=== PATIENT | male | born 1950 | race Caucasian/White ===

== ENCOUNTER 2019-03-26 15:56 | Inpatient (IN) | payer BC ==
[2019-03-26] VITALS (10 sets, daily range): BP systolic 115–145; BP diastolic 63–92
[~2019-03-26] VITALS: Ht 172.7 cm; Wt 71.2 kg
[2019-03-26] MEDS ORDERED: HEPARIN 25,000 UNITS PREMIX 500 ML IV SCH (19:15)
[2019-03-26] MEDS ORDERED: NITROGLYCERIN 0.4MG TABLET SL SL PRN ×2 (19:45→20:00)
[2019-03-26] MEDS ORDERED: ACETAMINOPHEN 325MG TABLET PO PRN ×2 (19:45→20:00)
[2019-03-26] MEDS ORDERED: NA PHOS,M-B/NA PHOS,DI-BA ENEMA 118ML PR PRN (20:00)
[2019-03-26] MEDS ORDERED: TRAMADOL 50MG TABLET PO PRN (20:00)
[2019-03-26] MEDS ORDERED: ONDANSETRON HCL 4MG/2ML INJ IV PRN (20:00)
[2019-03-26] MEDS ORDERED: ZOLPIDEM TARTRATE 5MG TABLET PO PRN (20:00)
[2019-03-26] MEDS ORDERED: IPRATROPIUM/ALBUTEROL 0.5-3(2.5)MG/3ML NEB NEB PRN (20:00)
[2019-03-26] MEDS ORDERED: MAGNESIUM/ALUMINUM HYDROXIDE/SIMETHICONE 30ML UDC PO PRN (20:00)
[2019-03-26] MEDS ORDERED: LORAZEPAM 0.5MG TABLET PO PRN (20:00)
[2019-03-26] MEDS ORDERED: GUAIFENESIN 200MG/10ML SUGAR FREE UDC PO PRN (20:00)
[2019-03-26] MEDS ORDERED: CLONIDINE 0.1MG TABLET PO PRN (20:00)
[2019-03-26] MEDS ORDERED: HEPARIN 60 UNITS/KG BOLUS IV SCH (20:00)
[2019-03-26 20:14] LABS: BASOPHILS % 2.1 % (0.0-2.0); EOSINOPHILS % 8.4 % (0.0-5.0); HEMATOCRIT. 36.5 % (42.0-52.0); HEMOGLOBIN. 11.8 g/dL (14.0-18.0); LYMPHOCYTES % 27.7 % (20.0-50.0); MEAN CORPUSCULAR HEMOGLOBIN 21.7 pg (28.0-32.0); MEAN CORPUSCULAR VOLUME 67.4 fL (80.0-94.0); MEAN PLATELET VOLUME 8.8 fl (7.4-10.4); MONOCYTES % 8.8 % (2.0-8.0); PLATELET 181 x1000/uL (130-400); RED BLOOD CELL COUNT 5.41 mill/uL (4.7-6.1); RED CELL DISTRIBUTION WIDTH 16.3 % (11.6-14.6)
[2019-03-26 20:23] LABS: PROTHROMBIN TIME 10.5 sec (9.6-11.0)
[2019-03-26] MEDS ORDERED: MORPHINE SULFATE 4 MG/ML CPJ (NOT FOR IM USE) IV PRN (20:30)
[2019-03-26] MEDS ORDERED: HEPARIN BOLUS PRN aPTT 30-44 IV (20:30)
[2019-03-26] MEDS ORDERED: HEPARIN BOLUS PRN aPTT <30 IV (20:30)
[2019-03-26] MEDS: HEPARIN 25,000 UNITS PREMIX 500 ML IV SCH (20:38)
[2019-03-26 20:43] LABS: PLATELET ESTIMATE NORMAL
[2019-03-26 20:49] LABS: CHLORIDE 110 mEq/L (98-107)
[2019-03-26 20:56] LABS: AMYLASE 69 IU/L (25-115)
[2019-03-26] MEDS: ALLOPURINOL 300 MG TABLET PO SCH ×2 (21:00→22:27)
[2019-03-26] MEDS ORDERED: DOCUSATE SODIUM 100MG CAPSULE PO SCH (21:00)
[2019-03-26] MEDS ORDERED: DIPHENHYDRAMINE 25MG CAPSULE PO PRN (21:00)
[2019-03-26] MEDS ORDERED: BISACODYL 10MG SUPP PR PRN (21:00)
[2019-03-26] MEDS ORDERED: CHLORHEXIDINE GLUCONATE 4% EXTERNAL USE TOP SCH (21:00)
[2019-03-26] MEDS ORDERED: ASCORBIC ACID 500 MG TABLET PO SCH (21:00)
[2019-03-26] MEDS: FAMOTIDINE 20MG TABLET PO SCH (21:37)
[2019-03-26] MEDS: ATORVASTATIN CALCIUM 40MG TABLET PO SCH (21:37)
[2019-03-26 22:57] LABS: CLARITY URINE CLEAR (CLEAR); COLOR URINE YELLOW (YELLOW); KETONES URINE NEGATIVE (NEGATIVE); LEUKOCYTE ESTERASE URINE NEGATIVE (NEGATIVE); NITRITE URINE NEGATIVE (NEGATIVE); OCCULT BLOOD URINE NEGATIVE (NEGATIVE); PH URINE 5.5 (4.5-8.0); PROTEIN URINE NEGATIVE (NEGATIVE); SPECIFIC GRAVITY URINE 1.013 (1.005-1.030); UROBILINOGEN URINE 0.2 E.U./dL (0.2-1.0)
[2019-03-27] VITALS (25 sets, daily range): BP systolic 96–149; BP diastolic 54–90
[2019-03-27 05:22] LABS: CHLORIDE 110 mEq/L (98-107)
[2019-03-27 05:25] LABS: BASOPHILS % 1.7 % (0.0-2.0); EOSINOPHILS % 8.1 % (0.0-5.0); HEMATOCRIT. 38.3 % (42.0-52.0); HEMOGLOBIN. 12.3 g/dL (14.0-18.0); LYMPHOCYTES % 25.6 % (20.0-50.0); MEAN CORPUSCULAR HEMOGLOBIN 21.8 pg (28.0-32.0); MEAN CORPUSCULAR VOLUME 68.1 fL (80.0-94.0); MEAN PLATELET VOLUME 9.2 fl (7.4-10.4); MONOCYTES % 9.7 % (2.0-8.0); NEUTROPHILS % 54.9 % (40.0-76.0); PLATELET 181 x1000/uL (130-400); RED BLOOD CELL COUNT 5.63 mill/uL (4.7-6.1); RED CELL DISTRIBUTION WIDTH 16.2 % (11.6-14.6)
[2019-03-27 05:30] LABS: HDL CHOLESTEROL 65 mg/dL (40-59); LDL CHOLESTEROL 48 mg/dL (5-100)
[2019-03-27] MEDS: ALLOPURINOL 300 MG TABLET PO SCH (05:30)
[2019-03-27] MEDS: FAMOTIDINE 20MG TABLET PO SCH ×2 (08:04→20:40)
[2019-03-27] MEDS: ASPIRIN 81MG TABLET PO SCH (08:04)
[2019-03-27] MEDS ORDERED: CHLORHEXIDINE GLUCONATE 4% EXTERNAL USE TOP SCH (09:00)
[2019-03-27] MEDS: ATORVASTATIN CALCIUM 40MG TABLET PO SCH (20:40)
[2019-03-27] MEDS: HEPARIN 25,000 UNITS PREMIX 500 ML IV SCH (23:03)
[2019-03-28] VITALS (14 sets, daily range): BP systolic 96–132; BP diastolic 58–82
[2019-03-28 05:00] LABS: BASOPHILS % 1.5 % (0.0-2.0); EOSINOPHILS % 6.5 % (0.0-5.0); HEMATOCRIT. 38.2 % (42.0-52.0); HEMOGLOBIN. 12.4 g/dL (14.0-18.0); LYMPHOCYTES % 23.5 % (20.0-50.0); MEAN CORPUSCULAR HEMOGLOBIN 21.9 pg (28.0-32.0); MEAN CORPUSCULAR VOLUME 67.7 fL (80.0-94.0); MEAN PLATELET VOLUME 9.5 fl (7.4-10.4); MONOCYTES % 8.6 % (2.0-8.0); NEUTROPHILS % 59.9 % (40.0-76.0); PLATELET 180 x1000/uL (130-400); RED BLOOD CELL COUNT 5.64 mill/uL (4.7-6.1); RED CELL DISTRIBUTION WIDTH 16.2 % (11.6-14.6)
[2019-03-28 05:08] LABS: CHLORIDE 106 mEq/L (98-107)
[2019-03-28] MEDS: FAMOTIDINE 20MG TABLET PO SCH ×2 (08:00→20:28)
[2019-03-28] MEDS: ASPIRIN 81MG TABLET PO SCH (08:00)
[2019-03-28] MEDS: ATORVASTATIN CALCIUM 40MG TABLET PO SCH (20:28)
[2019-03-29] VITALS (12 sets, daily range): BP systolic 109–133; BP diastolic 51–83
[2019-03-29] MEDS: HEPARIN 25,000 UNITS PREMIX 500 ML IV SCH (06:44)
[2019-03-29] MEDS: FAMOTIDINE 20MG TABLET PO SCH ×2 (08:16→21:43)
[2019-03-29] MEDS: ASPIRIN 81MG TABLET PO SCH (08:16)
[2019-03-29] MEDS: DOCUSATE SODIUM 250MG CAPSULE PO SCH (12:32)
[2019-03-29] MEDS ORDERED: EPOETIN ALFA 10000UNITS/ML VIAL SUBCUT SCH (13:00)
[2019-03-29] MEDS ORDERED: MAGNESIUM 4 G PREMIX 100 ML IV SCH (13:00)
[2019-03-29] MEDS: ATORVASTATIN CALCIUM 40MG TABLET PO SCH (21:43)
[2019-03-30] VITALS (12 sets, daily range): BP systolic 106–149; BP diastolic 69–94
[2019-03-30] MEDS: HEPARIN 25,000 UNITS PREMIX 500 ML IV SCH (06:17)
[2019-03-30 07:15] LABS: BASOPHILS % 1.8 % (0.0-2.0); EOSINOPHILS % 8.7 % (0.0-5.0); HEMATOCRIT. 42.6 % (42.0-52.0); HEMOGLOBIN. 13.8 g/dL (14.0-18.0); MEAN CORPUSCULAR HEMOGLOBIN 21.9 pg (28.0-32.0); MEAN CORPUSCULAR VOLUME 67.5 fL (80.0-94.0); MEAN PLATELET VOLUME 10.3 fl (7.4-10.4); MONOCYTES % 8.2 % (2.0-8.0); NEUTROPHILS % 50.3 % (40.0-76.0); PLATELET 199 x1000/uL (130-400); RED BLOOD CELL COUNT 6.31 mill/uL (4.7-6.1); RED CELL DISTRIBUTION WIDTH 16.2 % (11.6-14.6)
[2019-03-30 07:24] LABS: CHLORIDE 103 mEq/L (98-107)
[2019-03-30] MEDS: FAMOTIDINE 20MG TABLET PO SCH ×2 (08:13→21:57)
[2019-03-30] MEDS: DOCUSATE SODIUM 250MG CAPSULE PO SCH (08:13)
[2019-03-30] MEDS: ASPIRIN 81MG TABLET PO SCH (08:13)
[2019-03-30] MEDS ORDERED: CHLORHEXIDINE GLUCONATE 4% EXTERNAL USE TOP NR (21:00)
[2019-03-30] MEDS: ATORVASTATIN CALCIUM 40MG TABLET PO SCH (21:57)
[2019-03-31] VITALS (33 sets, daily range): BP systolic 84–136; BP diastolic 31–81
[2019-03-31 06:47] LABS: BASOPHILS % 1.8 % (0.0-2.0); HEMATOCRIT. 40.3 % (42.0-52.0); LYMPHOCYTES % 24.6 % (20.0-50.0); MEAN CORPUSCULAR VOLUME 68.2 fL (80.0-94.0); MEAN PLATELET VOLUME 9.8 fl (7.4-10.4); MONOCYTES % 7.8 % (2.0-8.0); NEUTROPHILS % 57.8 % (40.0-76.0); PLATELET 183 x1000/uL (130-400); RED BLOOD CELL COUNT 5.91 mill/uL (4.7-6.1); RED CELL DISTRIBUTION WIDTH 16.4 % (11.6-14.6)
[2019-03-31 07:29] LABS: CHLORIDE 106 mEq/L (98-107)
[2019-03-31] MEDS: CHLORHEXIDINE GLUCONATE 4% EXTERNAL USE TOP NR ×2 (07:40→08:37)
[2019-03-31] MEDS: FAMOTIDINE 20MG TABLET PO SCH ×2 (08:37→21:03)
[2019-03-31] MEDS: DOCUSATE SODIUM 250MG CAPSULE PO SCH (08:37)
[2019-03-31] MEDS: ASPIRIN 81MG TABLET PO SCH (08:37)
[2019-03-31] MEDS ORDERED: BACITRACIN 15GM TUBE TOP ONE (08:52)
[2019-03-31] MEDS ORDERED: NORMAL SALINE 0.9% 10 ML SYR ONE (08:53)
[2019-03-31] MEDS ORDERED: SKIN ADHESIVE 0.7 GM EA TOP ONE (08:53)
[2019-03-31] MEDS ORDERED: THROMBIN (BOVINE) 5000 UNITS/VIAL TOP ONE (08:53)
[2019-03-31] MEDS ORDERED: SODIUM CHLORIDE 0.9% ONE (08:54)
[2019-03-31] MEDS ORDERED: BACITRACIN 50,000 UNITS/VIAL ONE (08:54)
[2019-03-31] MEDS ORDERED: SODIUM CHLORIDE 0.9% 200 ML ONE (08:54)
[2019-03-31] MEDS ORDERED: SODIUM CHLORIDE 0.9% IRRIG SOL 8,000 ML IR ONE (08:54)
[2019-03-31] MEDS ORDERED: SODIUM CHLORIDE 0.9% 500 ML IV ONE (08:54)
[2019-03-31] MEDS ORDERED: HEPARIN 1000 UNITS/ML 10ML ONE ×4 (09:04→13:10)
[2019-03-31] MEDS ORDERED: SEVOFLURANE 250 ML LIQUID INH ONE (09:05)
[2019-03-31] MEDS ORDERED: NITROGLYCERIN 50MG PREMIX 250 ML IV ONE (09:05)
[2019-03-31] MEDS ORDERED: MIDAZOLAM HCL 2 MG/2 ML VIAL ONE (09:24)
[2019-03-31] MEDS ORDERED: FENTANYL CITRATE/PF 50MCG/ML 5ML VIAL ONE (09:26)
[2019-03-31] MEDS ORDERED: ROCURONIUM BROMIDE 10MG/ML VIAL 5ML IV ONE (09:27)
[2019-03-31] MEDS ORDERED: LIDOCAINE HCL 2% 5ML SYRINGE IV ONE (09:27)
[2019-03-31] MEDS ORDERED: LIDOCAINE HCL/PF 2% 20MG/ML 5 ML/VIAL ONE (09:27)
[2019-03-31] MEDS ORDERED: ESMOLOL HCL 10MG/ML 10ML VIAL IV ONE (09:27)
[2019-03-31] MEDS ORDERED: STERILE WATER FOR INJECTION 10ML VIAL ONE (09:27)
[2019-03-31] MEDS ORDERED: ETOMIDATE 2MG/ML 10ML VIAL IV ONE (09:30)
[2019-03-31] MEDS ORDERED: PHENYLEPHRINE 40 MG in SODIUM CHLORIDE 0.9% 246 ML IV PRN (09:30)
[2019-03-31] MEDS ORDERED: PROPOFOL 200MG/20ML VIAL IV ONE (09:35)
[2019-03-31] MEDS ORDERED: ACETAMINOPHEN 325MG TABLET PO NR (09:45)
[2019-03-31] MEDS ORDERED: ACETAMINOPHEN 500MG TABLET PO NR (09:48)
[2019-03-31] MEDS ORDERED: NICARDIPINE 50 MG in NS 250 ML IV ONE (10:00)
[2019-03-31] MEDS ORDERED: PAPAVERINE HCL 180MG in SODIUM CHLORIDE 0.9% 24ML IV ONE (10:00)
[2019-03-31] MEDS ORDERED: AMINOCAPROIC ACID 10,000 MG in SODIUM CHLORIDE 0.9% 460 ML IV ONE (10:00)
[2019-03-31] MEDS ORDERED: EPINEPHRINE 4 MG in DEXT 5% WATER 246 ML IV ONE (10:00)
[2019-03-31] MEDS ORDERED: NOREPINEPHRINE 4 MG in DEXT 5% WATER 246 ML IV ONE (10:00)
[2019-03-31] MEDS ORDERED: DOBUTAMINE 250MG PREMIX 250 ML IV ONE (10:00)
[2019-03-31] MEDS ORDERED: PHENYLEPHRINE 10 MG in DEXT 5% WATER 249 ML IV ONE (10:00)
[2019-03-31] MEDS ORDERED: DEL NIDO ELECTROLYTE-S(PH 7.4) 1,000 ML IV ONE ×2 (10:00)
[2019-03-31] MEDS ORDERED: DILTIAZEM HCL 5MG/ML 5ML VIAL IV ONE (10:00)
[2019-03-31] MEDS ORDERED: CEFAZOLIN 2,000 MG in DEXT 5% WATER 100 ML IV NR (10:00)
[2019-03-31] MEDS ORDERED: INSULIN REGULAR (DRIP) 100 UNITS in SODIUM CHLORIDE 0.9% 99 ML IV ONE (10:00)
[2019-03-31] MEDS ORDERED: VANCOMYCIN 1 G PREMIX 200 ML IV NR (10:30)
[2019-03-31] MEDS ORDERED: VANCOMYCIN HCL 500 MG/VIAL ONE (11:05)
[2019-03-31] MEDS ORDERED: MAGNESIUM SULFATE 5GM/10ML VIAL IV ONE ×2 (11:11→11:41)
[2019-03-31] MEDS ORDERED: AMINOCAPROIC ACID 250 MG/ML 20ML VIAL ONE (11:12)
[2019-03-31] MEDS ORDERED: PHENYLEPHRINE HCL 10 MG/ML 1ML (IV VIAL) IV ONE (11:12)
[2019-03-31] MEDS ORDERED: CALCIUM CHLORIDE 1GM/10ML SYR IV ONE ×3 (11:12→14:35)
[2019-03-31] MEDS ORDERED: MANNITOL 20% 0 ML IV ONE (11:12)
[2019-03-31] MEDS ORDERED: ALBUMIN HUMAN 25GM/100ML (25%) IV ONE ×2 (11:12→14:23)
[2019-03-31] MEDS ORDERED: SODIUM BICARBONATE 8.4% 1 MEQ/ML 50ML SYR IV ONE ×2 (11:13→14:35)
[2019-03-31] MEDS ORDERED: HEPARIN 10,000 UNITS/ML VIAL ONE ×2 (11:13→13:09)
[2019-03-31] MEDS ORDERED: DOPAMINE 400MG/250ML PREMIX 250 ML IV ONE (11:44)
[2019-03-31] MEDS ORDERED: ONDANSETRON HCL 4MG/2ML INJ ONE (13:49)
[2019-03-31] MEDS ORDERED: METOCLOPRAMIDE HCL 10MG/2ML VIAL ONE (13:49)
[2019-03-31] MEDS ORDERED: NEOSTIGMINE METHYLSULFATE 1MG/ML 10 ML VIAL ONE (13:51)
[2019-03-31] MEDS ORDERED: PROTAMINE SULFATE 10MG/ML VIAL 25ML IV ONE (14:15)
[2019-03-31] MEDS ORDERED: ALBUMIN HUMAN 12.5G/250ML (5%) IV ONE ×2 (14:23→15:00)
[2019-03-31] MEDS ORDERED: HYDROMORPHONE HCL/PF 2MG/ML (OR) ONE (14:27)
[2019-03-31] MEDS ORDERED: SODIUM CHLORIDE 0.9% 500 ML IV PRN (15:05)
[2019-03-31] MEDS ORDERED: LABETALOL HCL 5MG/ML VIAL 20ML IV ONE (15:15)
[2019-03-31] MEDS ORDERED: MAGNESIUM SULFATE 3 GM in DEXT 5% WATER 100 ML IV PRN (15:15)
[2019-03-31] MEDS ORDERED: OXYCODONE HCL/ACETAMINOPHEN 5/325MG TABLET PO PRN (15:15)
[2019-03-31] MEDS ORDERED: ALBUMIN HUMAN 25GM/100ML (25%) IV PRN (15:15)
[2019-03-31] MEDS ORDERED: MAGNESIUM 1 G PREMIX 100 ML IV PRN (15:15)
[2019-03-31 15:54] LABS: HEMATOCRIT. 32.6 % (42.0-52.0); HEMOGLOBIN. 10.5 g/dL (14.0-18.0); LYMPHOCYTES % 8.8 % (20.0-50.0); MEAN CORPUSCULAR HEMOGLOBIN 21.5 pg (28.0-32.0); MEAN CORPUSCULAR VOLUME 67.1 fL (80.0-94.0); MEAN PLATELET VOLUME 9.4 fl (7.4-10.4); MONOCYTES % 3.8 % (2.0-8.0); NEUTROPHILS % 83.4 % (40.0-76.0); PLATELET 154 x1000/uL (130-400); RED BLOOD CELL COUNT 4.86 mill/uL (4.7-6.1); RED CELL DISTRIBUTION WIDTH 16.1 % (11.6-14.6)
[2019-03-31] MEDS ORDERED: DEXTROSE 50% WATER 50ML SYRINGE IV PRN ×2 (16:00)
[2019-03-31] MEDS ORDERED: KCL 10MEQ/50ML PREMIX 100 ML IV PRN (16:00)
[2019-03-31] MEDS: BLOOD SUGAR DIAGNOSTIC STRIP TEST SCH ×8 (16:00→23:00)
[2019-03-31] MEDS ORDERED: KCL 10MEQ/50ML PREMIX 150 ML IV PRN (16:00)
[2019-03-31] MEDS ORDERED: KCL 10MEQ/50ML PREMIX 200 ML IV PRN (16:00)
[2019-03-31] MEDS: CEFAZOLIN 1000MG PREMIX 50 ML IV SCH (16:00)
[2019-03-31 16:02] LABS: PARTIAL THROMBOPLASTIN TIME 23.6 sec (23.4-31.0); PROTHROMBIN TIME 10.7 sec (9.6-11.0)
[2019-03-31 16:03] LABS: CHLORIDE 106 mEq/L (98-107)
[2019-03-31 16:13] LABS: PLATELET ESTIMATE NORMAL
[2019-03-31 16:25] LABS: BG BASE EXCESS 1.5 mmol/L (-2.0-2.0); BG CARBOXYHEMOGLOBIN 0.1 % (0.5-1.5); BG DEOXYHEMOGLOBIN 1.9 % (0.0-5.0); BG FRACTION INSPIRED OXYGEN 60; BG HCO3 ACT 26.9 mmol/L (22.0-26.0); BG METHEMOGLOBIN 0.2 % (0.0-1.5); BG OXYGEN SATURATION 98.1 % (92.0-98.5); BG OXYHEMOGLOBIN 97.8 % (94.0-97.0); BG PCO2 45.6 mmHg (35.0-45.0); BG PH 7.388 (7.350-7.450); BG SAMPLE SITE A-LINE; BG TOTAL HEMOGLOBIN 11.2 g/dL (12.0-18.0); BG VENT MODE MASK - SIMPLE
[2019-03-31] MEDS: DEXT 5%/0.45% NACL 1000ML 1,000 ML IV SCH (16:25)
[2019-03-31] MEDS: KETOROLAC 30MG/ML VIAL IV SCH ×2 (16:25→21:34)
[2019-03-31] MEDS ORDERED: DOPAMINE 400MG/250ML PREMIX 250 ML IV SCH (16:30)
[2019-03-31] MEDS ORDERED: INSULIN REGULAR (DRIP) 100 UNITS in SODIUM CHLORIDE 0.9% 100 ML IV SCH (17:00)
[2019-03-31] MEDS: ALBUMIN HUMAN 12.5G/250ML (5%) IV PRN ×3 (17:11→18:39)
[2019-03-31] MEDS: MAGNESIUM 2 G PREMIX 50 ML IV PRN ×2 (17:41→22:38)
[2019-03-31] MEDS ORDERED: ALBUMIN HUMAN 12.5G/250ML (5%) IV PRN (18:30)
[2019-03-31 20:01] LABS: MEAN CORPUSCULAR HEMOGLOBIN 21.6 pg (28.0-32.0); MEAN CORPUSCULAR VOLUME 67.2 fL (80.0-94.0); PLATELET 137 x1000/uL (130-400); RED BLOOD CELL COUNT 4.17 mill/uL (4.7-6.1); RED CELL DISTRIBUTION WIDTH 15.8 % (11.6-14.6)
[2019-03-31 20:06] LABS: CHLORIDE 106 mEq/L (98-107)
[2019-03-31 20:11] LABS: PHOSPHORUS 3.3 mg/dL (2.5-4.9)
[2019-03-31] MEDS: IPRATROPIUM/ALBUTEROL 0.5-3(2.5)MG/3ML NEB HHN SCH (20:16)
[2019-03-31] MEDS: ATORVASTATIN CALCIUM 40MG TABLET PO SCH (20:59)
[2019-03-31] MEDS ORDERED: FUROSEMIDE 20MG/2ML VIAL IVP NR (21:00)
[2019-04-01] VITALS (36 sets, daily range): BP systolic 78–137; BP diastolic 28–80
[2019-04-01] MEDS: BLOOD SUGAR DIAGNOSTIC STRIP TEST SCH ×17 (00:33→20:24)
[2019-04-01] MEDS: CEFAZOLIN 1000MG PREMIX 50 ML IV SCH ×3 (00:34→16:16)
[2019-04-01] MEDS: IPRATROPIUM/ALBUTEROL 0.5-3(2.5)MG/3ML NEB HHN SCH ×6 (00:42→20:50)
[2019-04-01] MEDS: KETOROLAC 30MG/ML VIAL IV SCH (04:13)
[2019-04-01 05:40] LABS: BASOPHILS % 0.7 % (0.0-2.0); HEMATOCRIT. 27.1 % (42.0-52.0); HEMOGLOBIN. 8.9 g/dL (14.0-18.0); LYMPHOCYTES % 9.6 % (20.0-50.0); MEAN CORPUSCULAR VOLUME 66.9 fL (80.0-94.0); MONOCYTES % 9.3 % (2.0-8.0); NEUTROPHILS % 78.4 % (40.0-76.0); PLATELET 136 x1000/uL (130-400); RED BLOOD CELL COUNT 4.05 mill/uL (4.7-6.1); RED CELL DISTRIBUTION WIDTH 15.8 % (11.6-14.6)
[2019-04-01 05:41] LABS: CHLORIDE 104 mEq/L (98-107)
[2019-04-01] MEDS: BACITRACIN 15GM TUBE TOP SCH ×2 (09:00→16:21)
[2019-04-01] MEDS: FAMOTIDINE 20MG TABLET PO SCH ×2 (09:12→20:25)
[2019-04-01] MEDS: ASPIRIN 81MG TABLET PO SCH (09:12)
[2019-04-01] MEDS: DOCUSATE SODIUM 100MG CAPSULE PO SCH ×2 (09:12→16:16)
[2019-04-01] MEDS ORDERED: FUROSEMIDE 40MG/4ML VIAL IVP NR (10:00)
[2019-04-01] MEDS: DEXT 5%/0.45% NACL 1000ML 1,000 ML IV SCH (11:40)
[2019-04-01] MEDS ORDERED: ATOR-2 PO (17:22)
[2019-04-01] MEDS ORDERED: ASPI-1393 PO (17:22)
[2019-04-01] MEDS ORDERED: LOSA25TA26 PO (17:22)
[2019-04-01] MEDS ORDERED: DEXTROSE 50% WATER 50ML SYRINGE IV PRN (18:45)
[2019-04-01] MEDS: INSULIN LISPRO 100 UNITS/ML SUBCUT SCH (20:24)
[2019-04-01] MEDS: ATORVASTATIN CALCIUM 40MG TABLET PO SCH (20:25)
[2019-04-02] VITALS (11 sets, daily range): BP systolic 99–127; BP diastolic 63–82
[2019-04-02] MEDS: IPRATROPIUM/ALBUTEROL 0.5-3(2.5)MG/3ML NEB HHN SCH ×6 (01:28→20:15)
[2019-04-02] MEDS: INSULIN LISPRO 100 UNITS/ML SUBCUT SCH ×4 (05:57→20:33)
[2019-04-02] MEDS: BLOOD SUGAR DIAGNOSTIC STRIP TEST SCH ×4 (05:57→20:25)
[2019-04-02 07:14] LABS: CHLORIDE 103 mEq/L (98-107)
[2019-04-02 07:22] LABS: BASOPHILS % 0.3 % (0.0-2.0); EOSINOPHILS % 1.5 % (0.0-5.0); HEMATOCRIT. 28.4 % (42.0-52.0); HEMOGLOBIN. 9.3 g/dL (14.0-18.0); LYMPHOCYTES % 9.2 % (20.0-50.0); MEAN CORPUSCULAR HEMOGLOBIN 22.1 pg (28.0-32.0); MEAN CORPUSCULAR VOLUME 67.2 fL (80.0-94.0); MEAN PLATELET VOLUME 9.4 fl (7.4-10.4); MONOCYTES % 9.6 % (2.0-8.0); NEUTROPHILS % 79.4 % (40.0-76.0); PLATELET 137 x1000/uL (130-400); RED BLOOD CELL COUNT 4.23 mill/uL (4.7-6.1); RED CELL DISTRIBUTION WIDTH 16.2 % (11.6-14.6)
[2019-04-02] MEDS: ASPIRIN 81MG TABLET PO SCH (08:02)
[2019-04-02] MEDS: FAMOTIDINE 20MG TABLET PO SCH ×2 (08:02→20:31)
[2019-04-02] MEDS: BACITRACIN 15GM TUBE TOP SCH ×2 (08:02→17:00)
[2019-04-02] MEDS: DOCUSATE SODIUM 100MG CAPSULE PO SCH ×2 (08:02→17:00)
[2019-04-02] MEDS ORDERED: METOPROLOL TARTRATE 25MG TABLET PO SCH (10:00)
[2019-04-02] MEDS: CLOPIDOGREL 75MG TABLET PO SCH (11:27)
[2019-04-02] MEDS ORDERED: MAGNESIUM 2 G PREMIX 50 ML IV SCH (12:00)
[2019-04-02] MEDS: ATORVASTATIN CALCIUM 40MG TABLET PO SCH (20:31)
[2019-04-02] MEDS: METOPROLOL TARTRATE 25MG TABLET PO SCH (20:32)
[2019-04-03] VITALS (8 sets, daily range): BP systolic 101–112; BP diastolic 55–76
[2019-04-03] MEDS: IPRATROPIUM/ALBUTEROL 0.5-3(2.5)MG/3ML NEB HHN SCH ×3 (04:10→08:55)
[2019-04-03 06:20] LABS: CHLORIDE 105 mEq/L (98-107)
[2019-04-03 06:23] LABS: BASOPHILS % 0.9 % (0.0-2.0); EOSINOPHILS % 2.5 % (0.0-5.0); HEMATOCRIT. 29.2 % (42.0-52.0); HEMOGLOBIN. 9.5 g/dL (14.0-18.0); LYMPHOCYTES % 8.8 % (20.0-50.0); MEAN CORPUSCULAR HEMOGLOBIN 21.8 pg (28.0-32.0); MEAN CORPUSCULAR VOLUME 67.2 fL (80.0-94.0); MEAN PLATELET VOLUME 9.5 fl (7.4-10.4); NEUTROPHILS % 76.8 % (40.0-76.0); PLATELET 164 x1000/uL (130-400); RED BLOOD CELL COUNT 4.35 mill/uL (4.7-6.1); RED CELL DISTRIBUTION WIDTH 16.3 % (11.6-14.6)
[2019-04-03] MEDS: BLOOD SUGAR DIAGNOSTIC STRIP TEST SCH ×2 (06:53→11:50)
[2019-04-03] MEDS: INSULIN LISPRO 100 UNITS/ML SUBCUT SCH ×2 (06:54→12:20)
[2019-04-03] MEDS: CLOPIDOGREL 75MG TABLET PO SCH (08:32)
[2019-04-03] MEDS: FAMOTIDINE 20MG TABLET PO SCH (08:32)
[2019-04-03] MEDS: ASPIRIN 81MG TABLET PO SCH (08:32)
[2019-04-03] MEDS: DOCUSATE SODIUM 100MG CAPSULE PO SCH (08:33)
[2019-04-03] MEDS: METOPROLOL TARTRATE 25MG TABLET PO SCH (08:35)
[2019-04-03] MEDS: BACITRACIN 15GM TUBE TOP SCH (08:35)
== END 2019-04-03 13:05 | disposition home health service (06) | DRG 236 ==
LOC: CVICU 18:00 → 3WST 03-28 09:04 → CVICU 03-31 10:14 → 3WST 04-01 18:39
PROVIDERS: ADMIT Internal Medicine; ATTEND Internal Medicine
PROC: 021309W Bypass Coronary Artery, Four or More Arteries from Aorta with Autologous Venous Tissue, Open Approach (ICD-10-PCS; principal; 2019-03-31)
PROC: 06BQ4ZZ Excision of Left Saphenous Vein, Percutaneous Endoscopic Approach (ICD-10-PCS; 2019-03-31)
PROC: 03HY32Z Insertion of Monitoring Device into Upper Artery, Percutaneous Approach (ICD-10-PCS; 2019-03-31)
PROC: 4A133B1 Monitoring of Arterial Pressure, Peripheral, Percutaneous Approach (ICD-10-PCS; 2019-03-31)
PROC: 4A133J1 Monitoring of Arterial Pulse, Peripheral, Percutaneous Approach (ICD-10-PCS; 2019-03-31)
DX: I25.110 Atherosclerotic heart disease of native coronary artery with unstable angina pectoris (principal); I10 Essential (primary) hypertension; E78.00 Pure hypercholesterolemia, unspecified; E11.9 Type 2 diabetes mellitus without complications; R74.0 Nonspecific elevation of levels of transaminase and lactic acid dehydrogenase [LDH]; E78.5 Hyperlipidemia, unspecified; R00.1 Bradycardia, unspecified; Z87.891 Personal history of nicotine dependence; Z82.49 Family history of ischemic heart disease and other diseases of the circulatory system; Z95.5 Presence of coronary angioplasty implant and graft
CPT/HCPCS: 36415; 36600; 71045; 80048; 80061; 80076; 81003; 82150; 82375; 82805; 82962; 83036; 83735; 84100; 85027; 85347; 85520; 86850; 86900; 86920; 93005; 93306; 93880; 94640; 97116; 97163; 97166; 97530; 97535; A4216; C1725; C1729; C1751; C1758; J0690; J0885; J1170; J1250; J1265; J1644; J1815; J1885; J1940; J2250; J2370; J2405; J2440; J2704; J2710; J2720; J2765; J3010; J3370; J3475; J3490; J7030; J7040; J7050; J7060; J7620; L3908; P9041; P9047